=== PATIENT | male | born 1980 | race Caucasian/White ===

== ENCOUNTER → 2020-11-19 | Outpatient (CLI) | payer OTHER ==
[~2020-11-19] MED LIST: CEPHALEXIN500 MG PO; CYCLOBENZAPRINE10 MG PO; HYDROCODON-ACE1 EAC2 PO; PREDNISONE; SULFAMETHOXAZO1 EACH PO
== END ==
LOC: KOH-I 16:00
DX: S86.029 Laceration of unspecified Achilles tendon (principal)
CPT/HCPCS: 73721

== ENCOUNTER 2020-11-28 06:09 | Observation (INO) | payer OTHER ==
[~2020-11-28] VITALS: Ht 185.4 cm; Wt 105.2 kg
[~2020-11-28 06:09] MED LIST changes: -CYCLOBENZAPRINE10 MG PO
--- NOTE | 2020-11-28 16:33 | NUR ---
awaiting for joss house keeper to bring wound vac to replace the one in the room. dr craig aware of the wound vac connected to patient is not working.
[2020-11-29 06:01] LABS: HEMOGLOBIN 13.4 gm/dl (14.0-17.5); RED BLOOD COUNT 4.5 M/UL (4.20-5.50); WHITE BLOOD COUNT 12.5 K/UL (4.5-11.0)
[2020-11-29 06:19] LABS: BUN/CREATININE RATIO 17 (0-10)
--- NOTE | 2020-11-29 14:42 | NUR ---
spoken to Dr. Marroquin and was informed that he will come tomorrow to check his wound and wound vac . notified patient of the above
[2020-11-30 03:14] LABS: HEMOGLOBIN 13.1 gm/dl (14.0-17.5); RED BLOOD COUNT 4.38 M/UL (4.20-5.50); WHITE BLOOD COUNT 9.8 K/UL (4.5-11.0)
[2020-11-30 03:35] LABS: BUN/CREATININE RATIO 14 (0-10)
[2020-11-30] MEDS ORDERED: CYCLOBENZAPRINE10 MG PO (15:02)
== END 2020-11-30 15:24 | disposition home or self-care (01) ==
LOC: OR 06:09 → M/S 13:42 → OR 13:45 → M/S 11-30 15:24
PROVIDERS: ADMIT Internal Medicine
DX: S86.011A Strain of right Achilles tendon, initial encounter (principal); S86.021A Laceration of right Achilles tendon, initial encounter; G89.18 Other acute postprocedural pain; F17.210 Nicotine dependence, cigarettes, uncomplicated; Z88.5 Allergy status to narcotic agent; Z79.2 Long term (current) use of antibiotics; Z79.891 Long term (current) use of opiate analgesic; W26.8XXA Contact with other sharp object(s), not elsewhere classified, initial encounter
CPT/HCPCS: 36415; 80053; 85025; 86140; C1713; G0378; J0171; J0690; J1100; J1170; J2001; J2250; J2270; J2405; J2550; J2704; J2710; J2795; J3010; J3370; J7120; Q4133

== ENCOUNTER → 2021-01-23 | Outpatient (CLI) | payer OTHER ==
[~2021-01-23] MED LIST changes: +CYCLOBENZAPRINE10 MG PO
[2021-01-23 08:42] LABS: HEMOGLOBIN 15.1 gm/dl (14.0-17.5); RED BLOOD COUNT 5.33 M/UL (4.20-5.50)
== END | disposition home or self-care (01) ==
LOC: OPSV 07:00
PROVIDERS: Podiatrist Foot & Ankle Surgery
DX: L97.429 Non-pressure chronic ulcer of left heel and midfoot with unspecified severity (principal)
CPT/HCPCS: 36415; 85027; 85652; 86140; Q4133

== ENCOUNTER → 2021-01-28 | Outpatient (CLI) | payer OTHER | LOC: OPSV 07:00 | DX: S91.301A Unspecified open wound, right foot, initial encounter (principal); T81.33XA Disruption of traumatic injury wound repair, initial encounter | CPT/HCPCS: Q4133 ==

== ENCOUNTER → 2021-02-04 | Outpatient (CLI) | payer OTHER | LOC: OPSV 07:00 | PROC: 0HRMXJZ Replacement of Right Foot Skin with Synthetic Substitute, External Approach (ICD-10-PCS; principal; 2021-02-04) | DX: S91.301A Unspecified open wound, right foot, initial encounter (principal); X58.XXXA Exposure to other specified factors, initial encounter | CPT/HCPCS: Q4133 ==

== ENCOUNTER → 2021-02-07 | Outpatient (CLI) | payer OTHER | LOC: WCC 13:00 | PROC: 0KBS0ZZ Excision of Right Lower Leg Muscle, Open Approach (ICD-10-PCS; principal; 2021-02-07) | DX: T81.31XA Disruption of external operation (surgical) wound, not elsewhere classified, initial encounter (principal); I25.2 Old myocardial infarction; F17.210 Nicotine dependence, cigarettes, uncomplicated; Z79.899 Other long term (current) drug therapy; Y83.8 Other surgical procedures as the cause of abnormal reaction of the patient, or of later complication, without mention of misadventure at the time of the procedure ==

== ENCOUNTER → 2021-02-14 | Outpatient (CLI) | payer OTHER | LOC: WCC 11:36 | DX: L97.319 Non-pressure chronic ulcer of right ankle with unspecified severity (principal); I25.2 Old myocardial infarction | CPT/HCPCS: G0463 ==

== ENCOUNTER → 2021-02-21 | Outpatient (CLI) | payer OTHER | LOC: WCC 14:00 | DX: T81.49XA Infection following a procedure, other surgical site, initial encounter (principal); S86.001A Unspecified injury of right Achilles tendon, initial encounter; I25.2 Old myocardial infarction; F17.210 Nicotine dependence, cigarettes, uncomplicated; R26.2 Difficulty in walking, not elsewhere classified; Z79.899 Other long term (current) drug therapy; X58.XXXA Exposure to other specified factors, initial encounter | CPT/HCPCS: 87070; 87077; 87186; 87205 ==

== ENCOUNTER → 2021-02-28 | Outpatient (CLI) | payer OTHER | LOC: WCC 12:01 | DX: S91.001A Unspecified open wound, right ankle, initial encounter (principal); I25.2 Old myocardial infarction; F17.210 Nicotine dependence, cigarettes, uncomplicated; R26.2 Difficulty in walking, not elsewhere classified; T81.49XD Infection following a procedure, other surgical site, subsequent encounter ==

== ENCOUNTER → 2021-03-06 | Outpatient (CLI) | payer OTHER | LOC: OPSV 07:00 | DX: S91.301A Unspecified open wound, right foot, initial encounter (principal); Z87.891 Personal history of nicotine dependence | CPT/HCPCS: Q4133 ==

== ENCOUNTER → 2021-03-13 | Outpatient (CLI) | payer OTHER | END | disposition home or self-care (01) | LOC: OPSV 07:00 | PROC: 0HRMXJZ Replacement of Right Foot Skin with Synthetic Substitute, External Approach (ICD-10-PCS; principal; 2021-03-13) | DX: S91.301A Unspecified open wound, right foot, initial encounter (principal); X58.XXXA Exposure to other specified factors, initial encounter | CPT/HCPCS: 87070; 87077; 87186; 87205; Q4133 ==

== ENCOUNTER → 2021-03-20 | Outpatient (CLI) | payer OTHER | LOC: OPSV 07:24 | DX: S91.301A Unspecified open wound, right foot, initial encounter (principal); S86.001A Unspecified injury of right Achilles tendon, initial encounter; X58.XXXA Exposure to other specified factors, initial encounter | CPT/HCPCS: Q4133 ==

== ENCOUNTER → 2021-03-27 | Outpatient (CLI) | payer OTHER | END | disposition home or self-care (01) | LOC: OPSV 07:00 | PROC: 0HRMXJZ Replacement of Right Foot Skin with Synthetic Substitute, External Approach (ICD-10-PCS; principal; 2021-03-27) | DX: S91.301A Unspecified open wound, right foot, initial encounter (principal); X58.XXXA Exposure to other specified factors, initial encounter | CPT/HCPCS: Q4133 ==

== ENCOUNTER → 2021-04-02 | Outpatient (CLI) | payer OTHER | LOC: OPSV 07:00 | DX: S91.301A Unspecified open wound, right foot, initial encounter (principal); F17.200 Nicotine dependence, unspecified, uncomplicated; X58.XXXA Exposure to other specified factors, initial encounter | CPT/HCPCS: 87070; 87077; 87186; 87205; Q4133 ==

== ENCOUNTER → 2021-04-17 | Outpatient (CLI) | payer OTHER | END | disposition home or self-care (01) | LOC: OPSV 04-10 07:00 | PROC: 0HRMXK3 Replacement of Right Foot Skin with Nonautologous Tissue Substitute, Full Thickness, External Approach (ICD-10-PCS; principal; 2021-04-17) | DX: S91.301A Unspecified open wound, right foot, initial encounter (principal); E11.621 Type 2 diabetes mellitus with foot ulcer; L97.412 Non-pressure chronic ulcer of right heel and midfoot with fat layer exposed; X58.XXXA Exposure to other specified factors, initial encounter | CPT/HCPCS: 87070; 87077; 87186; 87205; Q4133 ==

== ENCOUNTER → 2021-04-24 | Outpatient (CLI) | payer OTHER | LOC: OPSV 07:00 | DX: S91.301A Unspecified open wound, right foot, initial encounter (principal); Z72.0 Tobacco use; X58.XXXA Exposure to other specified factors, initial encounter | CPT/HCPCS: Q4133 ==

== ENCOUNTER → 2021-06-25 | Outpatient (CLI) | payer OTHER | LOC: KOH-I 14:57 | DX: M86.9 Osteomyelitis, unspecified (principal); S91.301A Unspecified open wound, right foot, initial encounter; R93.6 Abnormal findings on diagnostic imaging of limbs | CPT/HCPCS: 73718 ==

== ENCOUNTER → 2021-08-07 | Outpatient (CLI) | payer OTHER | LOC: WCC 07:28 | DX: T81.49XA Infection following a procedure, other surgical site, initial encounter (principal); S86.001A Unspecified injury of right Achilles tendon, initial encounter; R26.2 Difficulty in walking, not elsewhere classified; I25.10 Atherosclerotic heart disease of native coronary artery without angina pectoris; B96.5 Pseudomonas (aeruginosa) (mallei) (pseudomallei) as the cause of diseases classified elsewhere; F17.210 Nicotine dependence, cigarettes, uncomplicated | CPT/HCPCS: 87070; 87077; 87186; 87205 ==

== ENCOUNTER → 2021-08-15 | Outpatient (CLI) | payer OTHER | LOC: WCC 07:38 | DX: T81.33XD Disruption of traumatic injury wound repair, subsequent encounter (principal); T81.49XD Infection following a procedure, other surgical site, subsequent encounter; S86.001D Unspecified injury of right Achilles tendon, subsequent encounter; R26.2 Difficulty in walking, not elsewhere classified; I25.10 Atherosclerotic heart disease of native coronary artery without angina pectoris; B96.5 Pseudomonas (aeruginosa) (mallei) (pseudomallei) as the cause of diseases classified elsewhere; I25.2 Old myocardial infarction; X58.XXXD Exposure to other specified factors, subsequent encounter; Y81.3 Surgical instruments, materials and general- and plastic-surgery devices (including sutures) associated with adverse incidents; Y83.8 Other surgical procedures as the cause of abnormal reaction of the patient, or of later complication, without mention of misadventure at the time of the procedure; Z72.0 Tobacco use; Z98.890 Other specified postprocedural states ==

== ENCOUNTER → 2021-08-29 | Outpatient (CLI) | payer OTHER | END | disposition home or self-care (01) | LOC: WCC 07:29 | DX: L97.213 Non-pressure chronic ulcer of right calf with necrosis of muscle (principal); J44.9 Chronic obstructive pulmonary disease, unspecified; I10 Essential (primary) hypertension; Z79.899 Other long term (current) drug therapy; Z88.0 Allergy status to penicillin ==

== ENCOUNTER → 2021-09-05 | Outpatient (CLI) | payer OTHER | LOC: WCC 08:21 | DX: T81.33XD Disruption of traumatic injury wound repair, subsequent encounter (principal); Y83.8 Other surgical procedures as the cause of abnormal reaction of the patient, or of later complication, without mention of misadventure at the time of the procedure; R26.2 Difficulty in walking, not elsewhere classified; I25.10 Atherosclerotic heart disease of native coronary artery without angina pectoris; B96.5 Pseudomonas (aeruginosa) (mallei) (pseudomallei) as the cause of diseases classified elsewhere; M86.571 Other chronic hematogenous osteomyelitis, right ankle and foot; I25.2 Old myocardial infarction; Z72.0 Tobacco use ==

== ENCOUNTER → 2021-09-12 | Outpatient (CLI) | payer OTHER | LOC: WCC 07:56 | DX: T81.49XA Infection following a procedure, other surgical site, initial encounter (principal); S86.001A Unspecified injury of right Achilles tendon, initial encounter; R26.2 Difficulty in walking, not elsewhere classified; I25.10 Atherosclerotic heart disease of native coronary artery without angina pectoris; B96.5 Pseudomonas (aeruginosa) (mallei) (pseudomallei) as the cause of diseases classified elsewhere; M86.571 Other chronic hematogenous osteomyelitis, right ankle and foot; Z72.0 Tobacco use; X58.XXXA Exposure to other specified factors, initial encounter ==

== ENCOUNTER → 2021-09-17 | Outpatient (CLI) | payer OTHER | LOC: WCC 07:38 | DX: T81.31XA Disruption of external operation (surgical) wound, not elsewhere classified, initial encounter (principal); F17.210 Nicotine dependence, cigarettes, uncomplicated; I25.2 Old myocardial infarction; R26.2 Difficulty in walking, not elsewhere classified; I25.10 Atherosclerotic heart disease of native coronary artery without angina pectoris; B96.5 Pseudomonas (aeruginosa) (mallei) (pseudomallei) as the cause of diseases classified elsewhere; M86.571 Other chronic hematogenous osteomyelitis, right ankle and foot ==

== ENCOUNTER → 2021-09-26 | Outpatient (CLI) | payer OTHER | LOC: WCC 07:26 | DX: T81.31XA Disruption of external operation (surgical) wound, not elsewhere classified, initial encounter (principal); T81.49XA Infection following a procedure, other surgical site, initial encounter; R26.2 Difficulty in walking, not elsewhere classified; I25.10 Atherosclerotic heart disease of native coronary artery without angina pectoris; B96.5 Pseudomonas (aeruginosa) (mallei) (pseudomallei) as the cause of diseases classified elsewhere; M86.571 Other chronic hematogenous osteomyelitis, right ankle and foot; F17.210 Nicotine dependence, cigarettes, uncomplicated ==

== ENCOUNTER → 2021-10-03 | Outpatient (CLI) | payer OTHER | END | disposition home or self-care (01) | LOC: WCC 07:35 | PROC: 0JBN0ZZ Excision of Right Lower Leg Subcutaneous Tissue and Fascia, Open Approach (ICD-10-PCS; principal; 2021-10-03) | DX: T81.31XA Disruption of external operation (surgical) wound, not elsewhere classified, initial encounter (principal); I25.10 Atherosclerotic heart disease of native coronary artery without angina pectoris; T81.41XA Infection following a procedure, superficial incisional surgical site, initial encounter; L08.89 Other specified local infections of the skin and subcutaneous tissue; M86.571 Other chronic hematogenous osteomyelitis, right ankle and foot; F17.210 Nicotine dependence, cigarettes, uncomplicated; B96.5 Pseudomonas (aeruginosa) (mallei) (pseudomallei) as the cause of diseases classified elsewhere; Y83.8 Other surgical procedures as the cause of abnormal reaction of the patient, or of later complication, without mention of misadventure at the time of the procedure; I25.2 Old myocardial infarction; Z79.899 Other long term (current) drug therapy | CPT/HCPCS: 87070; 87077; 87186; 87205 ==

== ENCOUNTER → 2021-10-10 | Outpatient (CLI) | payer OTHER | LOC: WCC 07:08 | DX: T81.49XA Infection following a procedure, other surgical site, initial encounter (principal); S86.001A Unspecified injury of right Achilles tendon, initial encounter; R26.2 Difficulty in walking, not elsewhere classified; I25.10 Atherosclerotic heart disease of native coronary artery without angina pectoris; M86.571 Other chronic hematogenous osteomyelitis, right ankle and foot; B96.5 Pseudomonas (aeruginosa) (mallei) (pseudomallei) as the cause of diseases classified elsewhere; Z72.0 Tobacco use; X58.XXXA Exposure to other specified factors, initial encounter ==

== ENCOUNTER → 2021-10-11 | Outpatient (CLI) | payer OTHER | LOC: EMI 10:30 | DX: M86.8X7 Other osteomyelitis, ankle and foot (principal) | CPT/HCPCS: 73718 ==

== ENCOUNTER → 2021-10-31 | Outpatient (CLI) | payer OTHER | END | disposition home or self-care (01) | LOC: WCC 06:58 | DX: T81.31XA Disruption of external operation (surgical) wound, not elsewhere classified, initial encounter (principal); M86.571 Other chronic hematogenous osteomyelitis, right ankle and foot; I25.10 Atherosclerotic heart disease of native coronary artery without angina pectoris; B96.5 Pseudomonas (aeruginosa) (mallei) (pseudomallei) as the cause of diseases classified elsewhere; F17.210 Nicotine dependence, cigarettes, uncomplicated; R26.2 Difficulty in walking, not elsewhere classified; Z79.899 Other long term (current) drug therapy ==

== ENCOUNTER → 2021-11-01 | Outpatient (CLI) | payer OTHER ==
[~2021-11-01] VITALS: Ht 185.4 cm; Wt 108.9 kg
[2021-11-01 14:44] LABS: HEMOGLOBIN 14.8 gm/dl (14.0-17.5); RED BLOOD COUNT 5.05 M/UL (4.20-5.50); WHITE BLOOD COUNT 9.2 K/UL (4.5-11.0)
[2021-11-01 15:08] LABS: BUN/CREATININE RATIO 15 (0-10)
== END ==
LOC: OPSV 13:30
PROVIDERS: Nurse Practitioner Family
DX: Z45.2 Encounter for adjustment and management of vascular access device (principal)
CPT/HCPCS: 71045; 80053; 85027; 85652; 86140; 93005; 96365; C1751; J1335

== ENCOUNTER → 2021-11-04 | Outpatient (CLI) | payer OTHER ==
[2021-11-04 15:23] LABS: HEMOGLOBIN 14.8 gm/dl (14.0-17.5); RED BLOOD COUNT 5.02 M/UL (4.20-5.50); WHITE BLOOD COUNT 8.6 K/UL (4.5-11.0)
[2021-11-04 15:48] LABS: BUN/CREATININE RATIO 16 (0-10)
== END | disposition home or self-care (01) ==
LOC: OPSV 14:42
PROVIDERS: Nurse Practitioner Family
DX: M86.571 Other chronic hematogenous osteomyelitis, right ankle and foot (principal)
CPT/HCPCS: 80053; 85027; 85652; 86140

== ENCOUNTER → 2021-11-07 | Outpatient (CLI) | payer OTHER | LOC: WCC 07:11 | DX: T81.33XA Disruption of traumatic injury wound repair, initial encounter (principal); R26.2 Difficulty in walking, not elsewhere classified; I25.10 Atherosclerotic heart disease of native coronary artery without angina pectoris; B96.5 Pseudomonas (aeruginosa) (mallei) (pseudomallei) as the cause of diseases classified elsewhere; M86.571 Other chronic hematogenous osteomyelitis, right ankle and foot; I25.2 Old myocardial infarction; Y83.8 Other surgical procedures as the cause of abnormal reaction of the patient, or of later complication, without mention of misadventure at the time of the procedure; Z72.0 Tobacco use ==

== ENCOUNTER → 2021-11-12 | Outpatient (CLI) | payer OTHER ==
[2021-11-12 10:31] LABS: HEMOGLOBIN 15.2 gm/dl (14.0-17.5); RED BLOOD COUNT 5.19 M/UL (4.20-5.50); WHITE BLOOD COUNT 7.5 K/UL (4.5-11.0)
[2021-11-12 11:07] LABS: BUN/CREATININE RATIO 14 (0-10)
== END ==
LOC: OPSV 09:43
PROVIDERS: Nurse Practitioner Family
DX: T81.49XA Infection following a procedure, other surgical site, initial encounter (principal); M86.571 Other chronic hematogenous osteomyelitis, right ankle and foot; Z91.030 Bee allergy status
CPT/HCPCS: 80053; 85027; 85652; 86140

== ENCOUNTER → 2021-11-19 | Outpatient (CLI) | payer OTHER ==
[2021-11-19 09:48] LABS: HEMOGLOBIN 15.2 gm/dl (14.0-17.5); RED BLOOD COUNT 5.47 M/UL (4.20-5.50); WHITE BLOOD COUNT 5.9 K/UL (4.5-11.0)
[2021-11-19 10:00] LABS: BUN/CREATININE RATIO 18 (0-10)
== END ==
LOC: OPSV 07:30
PROVIDERS: Nurse Practitioner Family
DX: M86.571 Other chronic hematogenous osteomyelitis, right ankle and foot (principal); T81.49XD Infection following a procedure, other surgical site, subsequent encounter
CPT/HCPCS: 80053; 85027; 85652; 86140

== ENCOUNTER → 2021-11-26 | Outpatient (CLI) | payer OTHER ==
[2021-11-26 10:43] LABS: HEMOGLOBIN 15.6 gm/dl (14.0-17.5); RED BLOOD COUNT 5.33 M/UL (4.20-5.50); WHITE BLOOD COUNT 6.8 K/UL (4.5-11.0)
[2021-11-26 11:10] LABS: BUN/CREATININE RATIO 17 (0-10)
== END ==
LOC: OPSV 07:30
PROVIDERS: Nurse Practitioner Family
DX: M86.571 Other chronic hematogenous osteomyelitis, right ankle and foot (principal); T81.49XA Infection following a procedure, other surgical site, initial encounter
CPT/HCPCS: 80053; 85027; 85652; 86140

== ENCOUNTER → 2021-12-03 | Outpatient (CLI) | payer OTHER ==
[~2021-12-03] MED LIST changes: +INVANZ 1 GM VIAL1 GM IV; +NEURONTIN400 MG PO
[2021-12-03 09:08] LABS: HEMOGLOBIN 15.4 gm/dl (14.0-17.5); RED BLOOD COUNT 5.29 M/UL (4.20-5.50); WHITE BLOOD COUNT 7.2 K/UL (4.5-11.0)
[2021-12-03 09:33] LABS: BUN/CREATININE RATIO 16 (0-10)
== END ==
LOC: OPSV 07:30
PROVIDERS: Nurse Practitioner Family
DX: M86.571 Other chronic hematogenous osteomyelitis, right ankle and foot (principal); T81.49XD Infection following a procedure, other surgical site, subsequent encounter
CPT/HCPCS: 80053; 85027; 85652; 86140

== ENCOUNTER → 2021-12-05 | Outpatient (CLI) | payer OTHER | LOC: WCC 07:26 | PROC: 0JBN0ZZ Excision of Right Lower Leg Subcutaneous Tissue and Fascia, Open Approach (ICD-10-PCS; principal; 2021-12-05) | DX: T81.31XA Disruption of external operation (surgical) wound, not elsewhere classified, initial encounter (principal); T81.49XA Infection following a procedure, other surgical site, initial encounter; S86.001A Unspecified injury of right Achilles tendon, initial encounter; I25.10 Atherosclerotic heart disease of native coronary artery without angina pectoris; M86.571 Other chronic hematogenous osteomyelitis, right ankle and foot; I25.2 Old myocardial infarction; Z79.899 Other long term (current) drug therapy; Y83.8 Other surgical procedures as the cause of abnormal reaction of the patient, or of later complication, without mention of misadventure at the time of the procedure ==

== ENCOUNTER → 2021-12-10 | Outpatient (CLI) | payer OTHER ==
[2021-12-10 08:22] LABS: HEMOGLOBIN 15.5 gm/dl (14.0-17.5); RED BLOOD COUNT 5.33 M/UL (4.20-5.50); WHITE BLOOD COUNT 6.2 K/UL (4.5-11.0)
[2021-12-10 09:49] LABS: BUN/CREATININE RATIO 16 (0-10)
== END | disposition home or self-care (01) ==
LOC: OPSV 07:30
PROVIDERS: Nurse Practitioner Family
DX: M86.571 Other chronic hematogenous osteomyelitis, right ankle and foot (principal); Z91.030 Bee allergy status
CPT/HCPCS: 80053; 85027; 85652; 86140

== ENCOUNTER → 2021-12-11 | Day surgery (SDC) | payer OTHER | END | disposition home or self-care (01) | LOC: OR 05:50 | DX: T84.7XXA Infection and inflammatory reaction due to other internal orthopedic prosthetic devices, implants and grafts, initial encounter (principal); M86.8X7 Other osteomyelitis, ankle and foot | CPT/HCPCS: 73650; 76000; 87070; 87077; 87186; C1713; J0690; J1100; J1580; J2001; J2250; J2405; J2704; J2710; J2795; J3010; J3260; J3370; J7120 ==

== ENCOUNTER → 2021-12-26 | Outpatient (CLI) | payer OTHER | LOC: WCC 07:17 | PROC: 0JBP0ZZ Excision of Left Lower Leg Subcutaneous Tissue and Fascia, Open Approach (ICD-10-PCS; principal; 2021-12-26) | DX: L97.829 Non-pressure chronic ulcer of other part of left lower leg with unspecified severity (principal); L97.819 Non-pressure chronic ulcer of other part of right lower leg with unspecified severity ==

== ENCOUNTER → 2021-12-26 | Outpatient (CLI) | payer OTHER | LOC: OPSV 12-24 07:30 | DX: T81.49XA Infection following a procedure, other surgical site, initial encounter (principal); M86.571 Other chronic hematogenous osteomyelitis, right ankle and foot ==

== ENCOUNTER → 2021-12-31 | Outpatient (CLI) | payer OTHER ==
[2021-12-31 08:07] LABS: HEMOGLOBIN 15.2 gm/dl (14.0-17.5); RED BLOOD COUNT 5.21 M/UL (4.20-5.50); WHITE BLOOD COUNT 7.3 K/UL (4.5-11.0)
[2021-12-31 08:24] LABS: BUN/CREATININE RATIO 15 (0-10)
== END ==
LOC: OPSV 07:14
PROVIDERS: Podiatrist Foot & Ankle Surgery
DX: T81.49XD Infection following a procedure, other surgical site, subsequent encounter (principal)
CPT/HCPCS: 80053; 85027; 85652; 86140; 96365; J2185

== ENCOUNTER → 2022-01-07 | Outpatient (CLI) | payer OTHER ==
[2022-01-07 08:02] LABS: HEMOGLOBIN 15.3 gm/dl (14.0-17.5); RED BLOOD COUNT 5.28 M/UL (4.20-5.50); WHITE BLOOD COUNT 9.5 K/UL (4.5-11.0)
[2022-01-07 09:20] LABS: BUN/CREATININE RATIO 16 (0-10)
== END ==
LOC: OPSV 07:24
PROVIDERS: Nurse Practitioner Family
DX: M86.571 Other chronic hematogenous osteomyelitis, right ankle and foot (principal); T81.49XA Infection following a procedure, other surgical site, initial encounter
CPT/HCPCS: 80053; 85027; 85652; 86140

== ENCOUNTER → 2022-01-09 | Outpatient (CLI) | payer OTHER | END | disposition home or self-care (01) | LOC: WCC 07:20 | DX: T81.31XA Disruption of external operation (surgical) wound, not elsewhere classified, initial encounter (principal); S81.802A Unspecified open wound, left lower leg, initial encounter; X58.XXXA Exposure to other specified factors, initial encounter; I25.10 Atherosclerotic heart disease of native coronary artery without angina pectoris; M86.571 Other chronic hematogenous osteomyelitis, right ankle and foot; R26.2 Difficulty in walking, not elsewhere classified; F17.210 Nicotine dependence, cigarettes, uncomplicated ==

== ENCOUNTER → 2022-01-14 | Outpatient (CLI) | payer OTHER ==
[2022-01-14 08:20] LABS: HEMOGLOBIN 14.9 gm/dl (14.0-17.5); RED BLOOD COUNT 5.1 M/UL (4.20-5.50); WHITE BLOOD COUNT 6.5 K/UL (4.5-11.0)
[2022-01-14 08:45] LABS: BUN/CREATININE RATIO 19 (0-10)
== END ==
LOC: OPSV 07:30
PROVIDERS: Nurse Practitioner Family
DX: T81.49XD Infection following a procedure, other surgical site, subsequent encounter (principal)
CPT/HCPCS: 80053; 85027; 85652; 86140

== ENCOUNTER → 2022-01-16 | Outpatient (CLI) | payer OTHER | LOC: WCC 09:15 | DX: T81.49XA Infection following a procedure, other surgical site, initial encounter (principal); S86.001A Unspecified injury of right Achilles tendon, initial encounter; R26.2 Difficulty in walking, not elsewhere classified; I25.10 Atherosclerotic heart disease of native coronary artery without angina pectoris; M86.571 Other chronic hematogenous osteomyelitis, right ankle and foot; Z72.0 Tobacco use | CPT/HCPCS: 87070; 87077; 87186; 87205 ==

== ENCOUNTER → 2022-01-21 | Outpatient (CLI) | payer OTHER | LOC: OPSV 07:30 | DX: Z53.9 Procedure and treatment not carried out, unspecified reason (principal) | CPT/HCPCS: G0463 ==

== ENCOUNTER → 2022-02-13 | Outpatient (CLI) | payer OTHER | END | disposition home or self-care (01) | LOC: WCC 07:14 | DX: T81.31XA Disruption of external operation (surgical) wound, not elsewhere classified, initial encounter (principal); S81.802A Unspecified open wound, left lower leg, initial encounter; X58.XXXA Exposure to other specified factors, initial encounter ==